=== PATIENT | male | born 1980 | race Caucasian/White ===

== ENCOUNTER 2016-07-13 00:58 | Emergency (ER) | payer MEDICAID ==
[~2016-07-13] VITALS: Ht 167.6 cm; Wt 86.2 kg
[~2016-07-13 00:58] MED LIST: ATIVAN1 MG PO; FOLATE1 MG PO; LIBRIUM25 MG PO; MULTIVITAMIN1 TA1 PO; SEROQUEL25 MG; SEROQUEL50 MG PO; TYLENOL325 M2 PO; VALIUM5 M1 PO; VITAMIN B1 NAT100 MG PO; XANAX0.25 MG PO
[2016-07-13 01:11] VITALS: BP 152/90
--- NOTE | 2016-07-13 01:39 | NUR ---
Kemi whitlock in [facility] - 07/13/16 at 0146 by PHIL Patient to bed .
--- NOTE | 2016-07-13 02:02 | NUR ---
PATIENT PRESENTS TO ED WITH ALCOHOL WITHDRAWAL SYMPTOMS . PT STATES HE HAD 3 SEIZURES TODAY WHILE AT HOME, 1 FATHER WAS PRESENT AND 2 MOM WAS PRESENT X 30 MIN FOR THE 1ST SEIZURE AND UNKNOWN TIME FOR THE 2 OTHERS . TONGUE IS NOT SWOLLEN OR RED ON ASSESSMENT AT THE MOMENT. PT STATES HE TAKE ATIVAN 2MG 3X A DAY FOR SEIZURE AND HAS BEEN OUT OF MEDICATION FOR 2 WEEKS AND SINCE THEN BEEN DRINKING ALCOHOL. PT DENIES N/V/D; SKIN IS PINK/WARM/DRY; AAOX4 WITH EVEN AND STEADY GAIT; LUNGS CLEAR BL; HR EVEN AND REGULAR; PT DENIES ANY FEVER, CP, SOB, OR COUGH AT THIS TIME; PATIENT STATES PAIN OF 0/10 AT THIS TIME; VSS; PATIENT POSITIONED FOR COMFORT; HOB ELEVATED; BEDRAILS UP X2; BED DOWN. ER MD MADE AWARE OF PT STATUS.
--- NOTE | 2016-07-13 02:02 | NUR ---
Patient to bed 05.
[2016-07-13] MEDS ORDERED: LORazepam 2 MG/ML VIAL IVP ONE (02:30)
[2016-07-13] MEDS ORDERED: NACL 0.9% 2,000 ML IV ONE (02:30)
--- NOTE | 2016-07-13 03:53 | NUR ---
IV removed, catheter intact and site benign. Applied folded 4x4 gauze and tape to stop bleeding.
[2016-07-13 03:54] VITALS: BP 132/87
--- NOTE | 2016-07-13 03:54 | NUR ---
Patient discharged with v/s stable. Written and verbal after care instructions given and explained. Patient alert, oriented and verbalized understanding of instructions. Ambulatory with steady gait. All questions addressed prior to discharge. ID band removed. Patient advised to follow up with PMD. Rx of ATIVAN 1MG given. Patient educated on indication of medication including possible reaction and side effects. Opportunity to ask questions provided and answered.PT STATES HE CALLED HIS MOM, SHE WILL COME AND PICK HIM UP
== END 2016-07-13 03:54 | disposition home or self-care (01) ==
LOC: MED 00:58
DX: F10.129 Alcohol abuse with intoxication, unspecified (principal); Y90.8 Blood alcohol level of 240 mg/100 ml or more
CPT/HCPCS: 36415; 80053; 85025; 85610; 96361; 96374; 99284; G0480; G0482; J2060; J7030

== ENCOUNTER 2017-01-26 19:54 | Inpatient (IN) | payer MEDICAID ==
[~2017-01-26] VITALS: Ht 167.6 cm; Wt 78.9 kg
[~2017-01-26 19:54] MED LIST changes: -ATIVAN1 MG PO; -FOLATE1 MG PO; -LIBRIUM25 MG PO; +LORA-476 PO; +MULT-298 PO; -MULTIVITAMIN1 TA1 PO; -SEROQUEL25 MG; -SEROQUEL50 MG PO; -TYLENOL325 M2 PO; -VALIUM5 M1 PO; -VITAMIN B1 NAT100 MG PO; -XANAX0.25 MG PO
[2017-01-26 20:05] VITALS: BP 131/80
--- NOTE | 2017-01-26 20:43 | NUR ---
TO ER BED 9
--- NOTE | 2017-01-26 20:45 | NUR ---
PATIENT IS A 36 Y/O MALE WHO PRESENTS TO THE ED C/O SEIZURES. PT STATES, "I GET THEM WHEN I STOP DRINKING ALCOHOL. PT DENIES PAIN, PT REPORTS SEIZURES X1 DAY, NO ORAL TRAUMA. PERRLA. PT REPORTS TIGHTNESS 7/10 CHEST PAIN THAT DOES NOT RADIATE. PT REPORTS DIARRHEA X1 DAY, DENIES N/V. PT AAOX4, RR EVEN/UNLABORED. PT REPOSITIONED FOR COMFORT, BED IN LOWEST POSITION. ER MD DR. JARVIS NOTIFIED. WILL CONTINUE TO MONITOR. Addendum: 01/26/17 at 2211 by MEDDCV PATIENT IS A 36 Y/O MALE WHO PRESENTS TO THE ED C/O SEIZURES. PT STATES, "I GET THEM WHEN I STOP DRINKING ALCOHOL. PT DENIES PAIN, PT REPORTS SEIZURES X1 DAY, NO ORAL TRAUMA. PERRLA. SEIZURE PADS, X2 BEDRAILS UP. PT REPORTS TIGHTNESS 7/10 CHEST PAIN THAT DOES NOT RADIATE. PT REPORTS DIARRHEA X1 DAY, DENIES N/V. PT AAOX4, RR EVEN/UNLABORED. PT REPOSITIONED FOR COMFORT, BED IN LOWEST POSITION. ER MD DR. JARVIS NOTIFIED. WILL CONTINUE TO MONITOR.
[2017-01-26] MEDS ORDERED: NACL 0.9% 1,000 ML IV ONE (21:10)
[2017-01-26] MEDS ORDERED: LORazepam 2 MG/ML VIAL IVP ONE (21:10)
[2017-01-26] MEDS ORDERED: ONDANSETRON 4 MG/2 ML VIAL IVP PRN (21:30)
[2017-01-26] MEDS ORDERED: MORPHINE SULFATE 4 MG/ML SYR IVP PRN (21:30)
[2017-01-26] MEDS ORDERED: ALBUTEROL 0.083% 2.5 MG/3 ML NEBU IH PRN (21:30)
[2017-01-26] MEDS ORDERED: HYDROcodone/APAP 5/325 MG 1 TAB TAB PO PRN (21:30)
[2017-01-26] MEDS ORDERED: ACETAMINOPHEN 325 MG TAB PO PRN (21:30)
[2017-01-26 21:34] LABS: HEMATOCRIT 32.8 % (36-52); HEMOGLOBIN 9.7 g/dL (12.0-18.0); MEAN CORPUSCULAR HEMOGLOBIN 17 pg (27-31); MEAN CORPUSCULAR HGB CONC 30 g/dL (33-37); MEAN CORPUSCULAR VOLUME 59 fL (80-94); PLATELET COUNT (AUTO) 231 K/uL (140-450); RED CELL DISTRIBUTION WIDTH 18.8 % (11.6-13.7); WHITE BLOOD COUNT (AUTO) 7.2 K/uL (4.8-10.8)
[2017-01-26] MEDS ORDERED: LORazepam 2 MG/ML VIAL IM/IVP PRN (21:35)
[2017-01-26 21:44] LABS: ANION GAP 11.6 (8-16); CARBON DIOXIDE 30.1 mmol/L (21-32); CREATININE 0.7 mg/dL (0.7-1.3); POTASSIUM 3.7 mmol/L (3.5-5.1)
[2017-01-26 21:50] LABS: ALBUMIN 3.5 g/dL (3.4-5.0); TOTAL BILIRUBIN 0.5 mg/dL (0.0-1.0)
[2017-01-26 22:00] LABS: LYMPHOCYTES % (MANUAL) 41 % (20-46)
[2017-01-26 22:01] LABS: MONOCYTES % (MANUAL) 4 % (5-12)
[2017-01-26 22:08] LABS: APPEARANCE,URINE CLEAR (CLEAR); BILIRUBIN,URINE NEGATIVE (NEGATIVE); BLOOD, URINE NEGATIVE (NEGATIVE); COLOR,URINE YELLOW (YELLOW); LEUKOCYTE ESTERASE ,URINE NEGATIVE (NEGATIVE); NITRITE, URINE NEGATIVE (NEGATIVE); PH,URINE 5.5 (5.0-9.0); UGLUCOSE NEGATIVE (NEGATIVE)
[2017-01-26 22:14] LABS: BARBITURATE, URINE NEG. ng/ml (NEG <=200); BENZODIAZEPINE, URINE NEG. ng/mL (NEG <=200); CANNABINOID, URINE NEG. ng/mL (NEG <=50); COCAINE, URINE NEG. ng/mL (NEG <=300); OPIATE, URINE NEG. ng/mL (NEG <=2000); PHENCYCLIDINE SCREEN,URINE NEG. ng/mL (NEG <=25)
--- NOTE | 2017-01-26 22:15 | NUR ---
Patient noted to have existing wounds upon arrival to ER. Photos taken of wound and placed in chart. Wound covered with dressing. Physician informed.
--- NOTE | 2017-01-26 22:20 | NUR ---
RECEIVED REPORT FROM SWATHI CHAUDHARI. PATIENT ARRIVED FROM ER VIA [facility] WITH SWATHI RN, RACHID RN, AND WYATT EMT. PATIENT IS AWAKE, ALERT, AND ORIENTED. PATIENT SELF AMBULATED FROM ER GURNEY TO ICU BED 2 WITH NO SIGNS OF SOB OR DISTRESS NOTED. GAIT STEADY. ORIENTED PATIENT TO UNIT AND PLAN OF CARE VITAL SIGNS STABLE. THERE IS A #20 IN THE RIGHT AC. SITE IS DRY, INTACT, AND ASYMPTOMATIC. EXPLAINED PLAN OF CARE TONIGHT TO INCLUDE CARDIAC MONITORING, V/S Q2H, AND MEDICATION ADMINISTRATION. PATIENT VERBALIZED UNDERSTANDING. HOB AT 30 DEGREES WITH BED IN LOW POSITION. WILL CONTINUE TO MONITOR PATIENT.
--- NOTE | 2017-01-26 22:22 | NUR ---
Patient will be admitted to care of DR. HDEZ. Admited to ICU. Will go to room ICU 2. Belongings list completed. Report to JOSH CHAUDHARI.
[2017-01-26] MEDS: DEXT 5% /NACL 0.9% 1,000 ML IV SCH (22:25)
--- NOTE | 2017-01-26 22:37 | NUR ---
PATIENT REQUESTED ICE CHIPS. PROVIDED PATIENT WITH 1 CUP OF ICE CHIPS. TOLERATED WELL. CONTINUE TO MONITOR PATIENT.
[2017-01-26] MEDS: LORazepam 2 MG/ML VIAL IM/IVP PRN (22:43)
[2017-01-26 23:00] VITALS: BP 123/82
[2017-01-27] VITALS (10 sets, daily range): BP systolic 111–148; BP diastolic 60–92
--- NOTE | 2017-01-27 00:10 | NUR ---
PATIENT SLEEPING IN BED. BREATHING EVEN AND UNLABORED. HOB AT 30 DEGREES WITH BED IN LOW POSITION. SEIZURE PRECAUTIONS IN PLACE. CONTINUE TO MONITOR PATIENT.
--- NOTE | 2017-01-27 02:14 | NUR ---
PATIENT SLEEPING IN BED. NO SIGNS OF DISTRESS OR SOB NOTED. WILL CONTINUE TO MONITOR PATIENT.
--- NOTE | 2017-01-27 06:21 | NUR ---
PATIENT SLEEPING COMFORTABLY IN BED WITH NO SIGNS OF DISTRESS OR DISCOMFORT NOTED. WILL CONTINUE TO MONITOR PATIENT.
--- NOTE | 2017-01-27 07:20 | NUR ---
RECEIVED A REPORT FROM WATSON MESSINA. PT IS ASLEEP AND UNABLE TO FOLLOW COMMANDS AT THIS TIME. ON O2 2L/MIN VIA N/C. NO S/SX OF RESPIRATORY DISTRESS AND FLACC 0 NOTED. SR ON THE MONITOR. SKIN WARM TO TOUCH. NO EDEMA. APPLIED SCD TO BLE FOR VTE PROPHYLAXIS. SAFETY PRECAUTION, BED IN LOW POSITION. CALL LIGHT WITHIN REACH. WILL CONTINUE TO MONITOR.
[2017-01-27 07:48] LABS: HEMATOCRIT 31.1 % (36-52); HEMOGLOBIN 8.9 g/dL (12.0-18.0); MEAN CORPUSCULAR HEMOGLOBIN 17 pg (27-31); MEAN CORPUSCULAR HGB CONC 29 g/dL (33-37); MEAN CORPUSCULAR VOLUME 60 fL (80-94); PLATELET COUNT (AUTO) 222 K/uL (140-450); RED BLOOD CELL COUNT(AUTO) 5.21 MIL/uL (4.20-6.10); RED CELL DISTRIBUTION WIDTH 19.5 % (11.6-13.7); WHITE BLOOD COUNT (AUTO) 4.7 K/uL (4.8-10.8)
[2017-01-27 08:08] LABS: MAGNESIUM 1.7 mg/dL (1.8-2.4); PHOSPHORUS 4.1 mg/dL (2.5-4.9)
[2017-01-27 08:11] LABS: LYMPHOCYTES % (MANUAL) 32 % (20-46); MONOCYTES % (MANUAL) 6 % (5-12)
[2017-01-27 08:24] LABS: ANION GAP 7.5 (8-16); CARBON DIOXIDE 31.2 mmol/L (21-32); CREATININE 0.6 mg/dL (0.7-1.3); POTASSIUM 3.7 mmol/L (3.5-5.1)
[2017-01-27] MEDS: chlordiazePOXIDE 25 MG CAP PO SCH ×3 (09:19→16:13)
--- NOTE | 2017-01-27 09:19 | NUR ---
IS AT BEDSIDE. PT TOLERATED MEDICATION WELL. WILL CONTINUE TO MONITOR
--- NOTE | 2017-01-27 09:49 | NUR ---
PATIENT HAS BEEN SCREENED AND CATEGORIZED HIGH NUTRITION RISK. PATIENT WILL BE SEEN WITHIN 1-2 DAYS OF ADMISSION. 01/27/17-01/28/[address]
--- NOTE | 2017-01-27 10:44 | NUR ---
TERRI NOTE PER CLAY Hicks OF [facility] PH# [phone], REVIEWS AND DISCHARGE NEEDS SHOULD ONLY BE SENT TO [facility] AND NOT TO [facility]. INITIAL REVIEW FAXED TO [facility] [phone] PH# [phone] [phone]
[2017-01-27] MEDS: DEXT 5% /NACL 0.9% 1,000 ML IV SCH ×2 (11:09→16:21)
--- NOTE | 2017-01-27 11:30 | NUR ---
PT STABLE. NO S/SX OF RESPIRATORY DISTRESS AND DENIES PAIN AT THIS TIME
[2017-01-27] MEDS ORDERED: MAGNESIUM OXIDE 400 MG TAB PO SCH (13:04)
--- NOTE | 2017-01-27 13:10 | NUR ---
PT STABLE. DENIES ANY PAIN OR DISCOMFORT AT THIS TIME. WILL CONTINUE TO MONITOR
--- NOTE | 2017-01-27 13:45 | NUR ---
01/27/17 RD INITIAL ASSESSMENT COMPLETED PLEASE REFER TO NUTRITION ASSESSMENT UNDER CARE ACTIVITY FOR ESTIMATED NUTRITIONAL NEEDS. 1. CONTINUE REGULAR DIET 2. ENCOURAGE INCREASED PO INTAKE TO TOLERANCE 3. RD TO FOLLOW-UP 2-3 DAYS, HIGH RISK [address]
[2017-01-27] MEDS: LORazepam 2 MG/ML VIAL IM/IVP PRN (14:26)
--- NOTE | 2017-01-27 14:31 | NUR ---
PT C/O ANXIETY. ADMINISTERED ATIVAN ORDERED PRN. PT TOLERATED ALL MEDS WELL.
[2017-01-27] MEDS ORDERED: INFLUENZA VIRUS VACCINE QUAD 0.5 ML SYR IMVAC SCH (15:55)
--- NOTE | 2017-01-27 16:15 | NUR ---
PT IS STABLE. IV'S DC'D WITH CANNULA INTACT. WRIST BAND REMOVED. DISCHARGE INSTRUCTION GIVEN AND SIGNED BY PT'S . ALL PERSONAL BELONGINGS TAKEN BY PT AND LEFT WITH .
== END 2017-01-27 16:15 | disposition home or self-care (01) | DRG 775 ==
LOC: MED 19:54 → MIC 21:31
PROVIDERS: ADMIT Internal Medicine Pulmonary Disease; ATTEND Internal Medicine Pulmonary Disease
DX: F10.239 Alcohol dependence with withdrawal, unspecified (principal); R56.9 Unspecified convulsions; E83.42 Hypomagnesemia; E87.1 Hypo-osmolality and hyponatremia; F41.9 Anxiety disorder, unspecified
CPT/HCPCS: 36415; 80048; 80053; 80305; 81003; 83735; 84100; 85025; 87081; 90658; 96361; 96374; 99285; G0482; J2060; J7030; J7042

== ENCOUNTER 2017-08-15 14:54 | Emergency (ER) | payer MEDICAID ==
[~2017-08-15] VITALS: Ht 162.6 cm; Wt 82.6 kg
[~2017-08-15 14:54] MED LIST changes: -MULT-298 PO
[2017-08-15 15:02] VITALS: BP 134/93
--- NOTE | 2017-08-15 15:05 | NUR ---
WHEEL CHAIR ASSISTED TO BED 10
--- NOTE | 2017-08-15 15:12 | NUR ---
37 YO M BIB PARENTS AFTER BEING FOUND ON THE FLOOR "PASSED OUT". PT REPORTS HE CONSUMED 3 BEERS TODAY, AND DRINKS 20 BEERS/DAY FOR THE PAST MONTH. PT HAS HAD SEIZURES R/T ETOH IN THE PAST PER PARENTS. DENY EPILEPSY. PT A&O X 3. GCS 14. CMS INTACT. RR EVEN AND UNLABORED AT THIS TIME. LUNG SOUNDS CLEAR BILAT. ABD SOFT, NON-TENDER. PT DID NOT RECEIVE ANY INJURIES WHEN HE "PASSED OUT". PT PUPILS ARE DILATED AND RESPONSIVE TO LIGHT, PERRLA INTACT BRISK 4MM. ER MD WIGGINS NOTIFIED. PT NEEDS MET. SAFETY PRECAUTIONS IN PLACE. WILL CONTINUE TO MONITOR.
[2017-08-15] MEDS ORDERED: NACL 0.9% 1,000 ML IV ONE (15:20)
[2017-08-15 16:00] LABS: HEMATOCRIT 30.4 % (36-52); HEMOGLOBIN 8.8 g/dL (12.0-18.0); MEAN CORPUSCULAR HEMOGLOBIN 15 pg (27-31); MEAN CORPUSCULAR HGB CONC 29 g/dL (33-37); MEAN CORPUSCULAR VOLUME 52.1 fL (80-94); PLATELET COUNT (AUTO) 205 K/uL (140-450); RED BLOOD CELL COUNT(AUTO) 5.83 MIL/uL (4.20-6.10); RED CELL DISTRIBUTION WIDTH 22.2 % (11.6-13.7); WHITE BLOOD COUNT (AUTO) 3.5 K/uL (4.8-10.8)
--- NOTE | 2017-08-15 16:00 | NUR ---
PT RESTING PEACEFULLY IN BED AT THIS TIME. WILL CONTINUE TO MONITOR.
[2017-08-15 16:03] LABS: APPEARANCE,URINE CLEAR (CLEAR); BILIRUBIN,URINE NEGATIVE (NEGATIVE); BLOOD, URINE NEGATIVE (NEGATIVE); COLOR,URINE YELLOW (YELLOW); LEUKOCYTE ESTERASE ,URINE NEGATIVE (NEGATIVE); NITRITE, URINE NEGATIVE (NEGATIVE); PH,URINE 5.5 (5.0-9.0); UGLUCOSE NEGATIVE (NEGATIVE)
[2017-08-15 16:41] LABS: LYMPHOCYTES % (MANUAL) 46 % (20-46); MONOCYTES % (MANUAL) 6 % (5-12)
[2017-08-15 16:52] LABS: ALBUMIN 3.9 g/dL (3.4-5.0); ANION GAP 18.1 (8-16); ASPARTATE AMINOTRANSFERASE 91 U/L (15-37); CARBON DIOXIDE 26.9 mmol/L (21-32); CHLORIDE 101 mmol/L (98-107); CREATININE 0.7 mg/dL (0.7-1.3); GFR ARICAN-AMERICAN 165 mL/min (>90); GLUCOSE 103 mg/dL (74-106); LIPASE 278 U/L (73-393); SODIUM SERUM 142 mmol/L (136-145); TOTAL BILIRUBIN 0.6 mg/dL (0.0-1.0); UREA NITROGEN, BLOOD 6 mg/dL (7-18)
[2017-08-15 16:57] LABS: SALICYLATE < 2.8 mg/dL (2.8-20.0)
[2017-08-15 16:59] LABS: ACETAMINOPHEN < 0.5 ug/ml (10-30)
--- NOTE | 2017-08-15 16:59 | NUR ---
CRITICAL LAB VALUE RECEIVED AT THIS TIME FROM ELVIRA. BLOOD ALCOHOL 422.
[2017-08-15 17:58] VITALS: BP 128/74
[2017-08-15 23:31] LABS: BARBITURATE, URINE NEG. ng/ml (NEG <=200); BENZODIAZEPINE, URINE NEG. ng/mL (NEG <=200); CANNABINOID, URINE NEG. ng/mL (NEG <=50); COCAINE, URINE NEG. ng/mL (NEG <=300); OPIATE, URINE NEG. ng/mL (NEG <=2000); PHENCYCLIDINE SCREEN,URINE NEG. ng/mL (NEG <=25)
== END 2017-08-15 17:58 | disposition home or self-care (01) ==
LOC: MED 14:54
DX: F10.129 Alcohol abuse with intoxication, unspecified (principal); F41.9 Anxiety disorder, unspecified; G40.909 Epilepsy, unspecified, not intractable, without status epilepticus; F17.210 Nicotine dependence, cigarettes, uncomplicated
CPT/HCPCS: 36415; 71045; 80053; 80305; 81003; 83690; 84484; 85025; 93005; 96360; 99285; G0480; G0482; J7030; Q0092

== ENCOUNTER 2019-04-15 18:55 | Emergency (ER) | payer MEDICAID ==
[~2019-04-15] VITALS: Ht 167.6 cm; Wt 99.3 kg
[2019-04-15 19:52] VITALS: BP 158/83
--- NOTE | 2019-04-15 19:59 | NUR ---
PT AMBULATED TO THE LOBBY TO A/W BED
[2019-04-15] MEDS ORDERED: KETOROLAC 30 MG/ML VIAL IM ONE (21:50)
--- NOTE | 2019-04-15 22:00 | NUR ---
PATIENT ASSESSMENT COMPLETED FOR RIB PAIN. PATIENT AT CHAIRSIDE. PATIEN SITTING UP NO DISTRESS AT THIS TIME.
--- NOTE | 2019-04-15 23:30 | NUR ---
PATIENT SITTING UP IN CHAIR. NO NEEDS STATED.
[2019-04-16] MEDS ORDERED: DICYCLOMINE HCL LIQUID 20 MG, ALUMINUM HYD/MAG/SIMETHICONE 30 ML, LIDOCAINE VISCOUS 2% ... PO ONE ×3 (00:15)
[2019-04-16] MEDS ORDERED: HYDROcodone/APAP 5/325 MG 1 TAB TAB PO ONE (00:15)
[2019-04-16] MEDS ORDERED: ALUMINUM HYD/MAG/SIMETHICONE 30 ML UDC ONE (00:26)
[2019-04-16] MEDS ORDERED: LIDOCAINE VISCOUS 2% 20 ML UDC ONE (00:26)
[2019-04-16] MEDS ORDERED: DICYCLOMINE HCL LIQUID 10 MG/5 ML UDC ONE (00:26)
[2019-04-16 00:46] VITALS: BP 148/80
--- NOTE | 2019-04-16 00:47 | NUR ---
Patient discharged with v/s stable. Written and verbal after care instructions given and explained. Patient alert, oriented and verbalized understanding of instructions. Ambulatory with steady gait. All questions addressed prior to discharge. ID band removed. Patient advised to follow up with PMD. Rx of PRIOLSEC, PROMETHAZINE given. Patient educated on indication of medication including possible reaction and side effects. Opportunity to ask questions provided and answered.
== END 2019-04-16 00:47 | disposition home or self-care (01) ==
LOC: MED 18:55
DX: R10.13 Epigastric pain (principal); K44.9 Diaphragmatic hernia without obstruction or gangrene; R05 Cough; F17.210 Nicotine dependence, cigarettes, uncomplicated; Z79.899 Other long term (current) drug therapy
CPT/HCPCS: 71111; 74150; 96372; 99284; J1885

== ENCOUNTER 2019-08-04 03:19 | Emergency (ER) | payer MEDICAID ==
[~2019-08-04] VITALS: Ht 162.6 cm; Wt 81.6 kg
[2019-08-04 03:20] VITALS: BP 123/68
--- NOTE | 2019-08-04 03:23 | NUR ---
PT TAKEN TO BED 4
--- NOTE | 2019-08-04 03:26 | NUR ---
Dr. Cole examing patient.
--- NOTE | 2019-08-04 03:30 | NUR ---
39 Y/O MALE PRESENTS TO ER WITH ETOH INTOXICATION. PT STATES HIS MOTHER DROPPED HIM OFF. PT FELL ON FLOOR IN WAITING AREA, AND WAS IMMEDIATELY BROUGHT BACK TO BED 4. PT WAS PLACED IN BED, AND PLACED ON SEIZURE PRECAUTIONS. PT STATED HE JUST WANTED A BANANA BAG, AND SEEING 1 YEAR OLD SON "DEVANG" PT'S DAD AND MOM STATED HE'S BEEN DRINKING FOR 3 MONTHS STRAIGHT. PT DENIES SI/HI, DENIES PAIN COUGH, SOB, NAUSEA, VOMITING, DIARRHEA. PT STATES HAS 7/10 PAIN WITH "CHEST COMPRESSIONS" PT'S VSS. R/R EQUAL, AND UNLABORED. PT CONTINUES TO REQUEST ATIVAN, ERMD NOTIFIED. RIGHT FOREARM 22G IV PLACED WITH NS BOLUS. SIDERAIL X2, WILL CONTINUE TO MONITOR. NKDA DENIES PMHX
--- NOTE | 2019-08-04 03:31 | NUR ---
CONTACT NUMBER FOR RIDE IS PT'S DAD, MYCHAL KELY.
[2019-08-04] MEDS ORDERED: NACL 0.9% 1,000 ML IV ONE (03:35)
[2019-08-04] MEDS ORDERED: LORazepam 1 MG TAB PO ONE (04:10)
[2019-08-04 04:40] VITALS: BP 123/68
--- NOTE | 2019-08-04 04:40 | NUR ---
Patient discharged with v/s stable. Written and verbal after care instructions given and explained. Patient verbalized understanding. Ambulatory with steady gait. All questions addressed prior to discharge. Advised to follow up with PMD.
== END 2019-08-04 04:40 | disposition home or self-care (01) ==
LOC: MED 03:19
DX: F10.10 Alcohol abuse, uncomplicated (principal); F12.90 Cannabis use, unspecified, uncomplicated; F14.90 Cocaine use, unspecified, uncomplicated; Z79.899 Other long term (current) drug therapy
CPT/HCPCS: 99283; J7030; 99282

== ENCOUNTER 2021-06-13 01:33 | Inpatient (IN) | payer MEDICAID, SELFPAY ==
[~2021-06-13] VITALS: Ht 165.1 cm; Wt 85.7 kg
[2021-06-13 01:34] VITALS: BP 141/94
--- NOTE | 2021-06-13 01:37 | NUR ---
PT TAKEN TO BED 2
--- NOTE | 2021-06-13 01:40 | NUR ---
41 Y/O MALE BIB PARENTS, C/O ETOH/ ALCOHOL WITHDRAWAL X1 DAY. PATIENT PRESENTS TO ED WITH WEAKNESS. PT STATES HE HAS BEEN TRYING TO QUIT ALCOHOL, BONZOS, AND COCAINE AND HAS BEEN SOBER FOR 2 DAYS; HE EXPRESSED A DESIRE TO QUIT HIS DEPENDENCY; PT CLAIMS HE HAS BEEN SEIZING FROM WITHDRAWALS SINCE THIS MORNING AND HIS PARENTS HAVE BEEN GIVING HIM ALCOHOL TO STOP THE SEIZING. PT STATES HE JUST KEEPS WAKING UP IN DIFFERENT PARTS OF THE HOUSE PRESSUMABLY AFTER SEIZING. DENIES N/V/D; SKIN IS PINK/WARM/DRY; AAOX4 WITH A WEAK GAIT; LUNGS CLEAR BL; HR EVEN AND REGULAR; PT DENIES ANY FEVER, CP, SOB, OR COUGH AT THIS TIME; PATIENT STATES PAIN OF 0/10 AT THIS TIME; VSS; PATIENT POSITIONED FOR COMFORT; HOB ELEVATED; BEDRAILS UP X2; BED DOWN. ER MD MADE AWARE OF PT STATUS. PT STATES HIS NORMAL CONSUMPTION OF ALCOHOL IS 20 BEERS/DAY. HX: "DIFFICULTY URINATING" NKDA MED: TAMSULOSIN
--- NOTE | 2021-06-13 01:42 | NUR ---
Dr. Bateman examining patient.
[2021-06-13] MEDS ORDERED: LORazepam 2 MG/ML VIAL IVP ONE (01:55)
[2021-06-13] MEDS ORDERED: NACL 0.9% 2,000 ML IV ONE (01:55)
--- NOTE | 2021-06-13 01:58 | NUR ---
BLOOD, URINE, AND COVID/MARILEE COLLECTED AND GIVEN TO LATHE SET UP PERSONGRACE SYED.
[2021-06-13 02:12] LABS: BASOPHILS % (AUTO) 0.4 % (0.0-2.0); EOSINOPHILS # (AUTO) 0.1 K/uL (0-0.4); EOSINOPHILS % (AUTO) 2.3 % (0.0-4.0); HEMATOCRIT 46.3 % (36-52); HEMOGLOBIN 14.6 g/dL (12.0-18.0); LYMPHOCYTES # (AUTO) 1.8 K/uL (2.0-11.5); LYMPHOCYTES % (AUTO) 35.2 % (20.5-51.1); MEAN CORPUSCULAR HEMOGLOBIN 22 pg (27-31); MEAN CORPUSCULAR HGB CONC 32 g/dL (33-37); MEAN CORPUSCULAR VOLUME 70.5 fL (80-94); MONOCYTES # (AUTO) 0.4 K/uL (0.8-1.0); MONOCYTES % (AUTO) 7.5 % (1.7-9.3); NEUTROPHILS # (AUTO) 2.8 K/uL (1.8-7.7); NEUTROPHILS % (AUTO) 54.6 % (42.2-75.2); PLATELET COUNT (AUTO) 190 K/uL (140-450); RED BLOOD CELL COUNT(AUTO) 6.58 MIL/uL (4.20-6.10); RED CELL DISTRIBUTION WIDTH 27.6 % (11.6-13.7); WHITE BLOOD COUNT (AUTO) 5.2 K/uL (4.8-10.8)
[2021-06-13 02:20] LABS: BARBITURATE, URINE NEGATIVE ng/ml (NEG <=200); BENZODIAZEPINE, URINE POSITIVE ng/mL (NEG <=200)
[2021-06-13 02:21] LABS: CANNABINOID, URINE NEGATIVE ng/mL (NEG <=50); COCAINE, URINE POSITIVE ng/mL (NEG <=300); OPIATE, URINE NEGATIVE ng/mL (NEG <=2000); PHENCYCLIDINE SCREEN,URINE NEGATIVE ng/mL (NEG <=25)
[2021-06-13 02:32] LABS: ALBUMIN 3.5 g/dL (3.4-5.0); ANION GAP 13.7 (8-16); CARBON DIOXIDE 26.4 mmol/L (21-32); CREATININE 0.6 mg/dL (0.6-1.3); POTASSIUM 3.1 mmol/L (3.5-5.1); TOTAL BILIRUBIN 0.8 mg/dL (0.0-1.0)
[2021-06-13 02:53] LABS: ACETAMINOPHEN < 0.5 ug/ml (10-30); SALICYLATE < 2.8 mg/dL (2.8-20.0)
--- NOTE | 2021-06-13 04:12 | NUR ---
Patient will be admitted to care of DR MATUTE. Admited to TELE. Will go to room 124B. Belongings list completed. Report to CATRINA CHAUDHARI.
[2021-06-13 04:28] VITALS: BP 97/67
[2021-06-13] MEDS ORDERED: TAMS0.4C96 PO (04:29)
--- NOTE | 2021-06-13 07:10 | NUR ---
RECEIVED PATIENT FROM JUNIOR JAVA DEVELOPER NURSE FOR CONTINUITY OF CARE. PATIENT IS SLEEPING, CHEST RISE AND FALL, AROUSABLE TO VOICE, A/O X3. RESPIRATORY EVEN AND UNLABORED, ON ROOM AIR. NO SIGN OF DISTRESS NOTED. SKIN WARM, DRY, NON DIAPHORETIC. IV ON RIGHT AC 20G, INTACT AND PATENT, SALINE LOCK. DENIES ANY PAIN OR DISCOMFORT. PLAN OF CARE DISCUSSED, PATIENT VERBALIZED UNDERSTANDING. PRECAUTION IN PLACE. CALL LIGHT WITHIN REACH. WILL CONTINUE TO MONITOR.
[2021-06-13 08:00] VITALS: BP 105/59
[2021-06-13] MEDS ORDERED: HYDROcodone/APAP 7.5/325 MG 1 TAB PO PRN (08:20)
[2021-06-13] MEDS ORDERED: DOCUSATE SODIUM 100 MG GELCAP PO PRN (08:20)
[2021-06-13] MEDS ORDERED: ONDANSETRON 4 MG/2 ML VIAL IM/IVP PRN (08:20)
[2021-06-13] MEDS ORDERED: POTASSIUM CHLORIDE 10 MEQ TABER PO PRN (08:20)
[2021-06-13] MEDS ORDERED: ZOLPIDEM 5 MG TAB PO PRN (08:20)
[2021-06-13] MEDS ORDERED: ACETAMINOPHEN 325 MG TAB PO PRN (08:20)
[2021-06-13] MEDS ORDERED: guaiFENesin DM 200/20 MG-10 ML 10 ML UDC PO PRN (08:20)
[2021-06-13] MEDS: PANTOPRAZOLE 40 MG TABEC PO SCH (09:28)
[2021-06-13] MEDS: NACL 0.9% 1,000 ML IV SCH ×2 (09:35→16:20)
--- NOTE | 2021-06-13 09:35 | NUR ---
PATIENT IS AWAKE, EATING BREAKFAST. SCHEDULE MEDICATIONS GIVEN WITH EDUCATION, PATIENT VERBALIZED UNDERSTANDING. PATIENT TOLERATED WELL. NO SIGN OF DISTRESS NOTED. PRECAUTION IN PLACE. CALL LIGHT WITHIN REACH. WILL CONTINUE TO MONITOR.
[2021-06-13 10:22] LABS: CHOL/HDL RATIO 2.6 (1-4.5); FREE T4 (FREE THYROXINE) 0.6 ng/dL (0.76-1.46); MAGNESIUM 2.1 mg/dL (1.8-2.4); PHOSPHORUS 4.4 mg/dL (2.5-4.9); THYROID STIMULATING HORMONE 1.13 uIU/mL (0.34-3.74)
[2021-06-13] MEDS: MULTIVITAMIN-12 10 ML, THIAMINE 100 MG, FOLIC ACID 1 MG, MAGNESIUM SULFATE 50% 2,000 MG... IV SCH ×5 (10:24)
[2021-06-13 11:01] LABS: PROTHROMBIN TIME 11.5 secs (10.8-13.4)
--- NOTE | 2021-06-13 11:20 | NUR ---
PATIENT IS SLEEPING, CHEST RISE AND FALL NOTED, AROUSABLE TO VOICE. NO SIGN OF DISTRESS NOTED. PRECAUTION IN PLACE. CALL LIGHT WITHIN REACH. WILL CONTINUE TO MONITOR.
--- NOTE | 2021-06-13 11:30 | NUR ---
DC PLANNIN YRS OLD MALE PATIENT WAS ADMITTED FROM HOME WITH A DX OF ALCOHOL WITHDRAWAL. PATIENT HAS A HX OF BPH, SEIZURE, ALCOHOL AND COCAINE ABUSE. RAPID COVID TEST NEGATIVE. ADMINISTERED IVF AND BANANA BAG . MINE WEDGE SAWYER TO EVALUATE FOR ALCOHOL AND DRUG ABUSE. DC PLAN TO GO HOME WHEN STABLE. CM TO FOLLOW
[2021-06-13 11:48] LABS: APPEARANCE,URINE CLEAR (CLEAR); BILIRUBIN,URINE NEGATIVE (NEGATIVE); BLOOD, URINE NEGATIVE (NEGATIVE); COLOR,URINE YELLOW (YELLOW); LEUKOCYTE ESTERASE ,URINE NEGATIVE (NEGATIVE); NITRITE, URINE NEGATIVE (NEGATIVE); UGLUCOSE NEGATIVE (NEGATIVE)
[2021-06-13 12:00] VITALS: BP 107/62
--- NOTE | 2021-06-13 12:30 | NUR ---
PATIENT AMBULATE TO BATHROOM INDEPENDENTLY WITH STEADY GAIT. NO SIGN OF DISTRESS NOTED. PRECAUTION IN PLACE, CALL LIGHT WITHIN REACH. WILL CONTINUE TO MONITOR.
--- NOTE | 2021-06-13 14:20 | NUR ---
PATIENT IS SLEEPING, CHEST RISE AND FALL, NO SIGN OF DISTRESS NOTED. PRECAUTION IN PLACE. CALL LIGHT WITHIN REACH. WILL CONTINUE TO MONITOR.
[2021-06-13 16:00] VITALS: BP 115/63
--- NOTE | 2021-06-13 16:20 | NUR ---
PATIENT IS AWAKE, RESTING IN BED, NO SIGN OF DISTRESS NOTED. PRECAUTION IN PLACE. CALL LIGHT WITHIN REACH. WILL CONTINUE TO MONITOR.
--- NOTE | 2021-06-13 16:25 | NUR ---
PATIENT HAS BEEN SCREENED AND CATEGORIZED MODERATE NUTRITION RISK. PATIENT WILL BE SEEN WITHIN 3-5 DAYS OF ADMISSION. [address]
--- NOTE | 2021-06-13 18:35 | NUR ---
PATIENT IS SLEEPING, CHEST RISE AND FALL, AROUSABLE TO VOICE. NO SIGN OF DISTRESS NOTED. PRECAUTION IN PLACE. CALL LIGHT WITHIN REACH. WILL CONTINUE TO MONITOR.
--- NOTE | 2021-06-13 19:29 | NUR ---
ENDORSED PATIENT TO PROCUREMENT ACCOUNTANT FOR CONTINUITY OF CARE. PATIENT IS STABLE.
[2021-06-14] MEDS: NACL 0.9% 1,000 ML IV SCH ×2 (00:20→08:20)
[2021-06-14 05:25] LABS: ANION GAP 10.2 (8-16); CARBON DIOXIDE 29.4 mmol/L (21-32); CREATININE 0.7 mg/dL (0.6-1.3); POTASSIUM 3.6 mmol/L (3.5-5.1)
[2021-06-14 05:52] LABS: BASOPHILS % (AUTO) 0.2 % (0.0-2.0); EOSINOPHILS # (AUTO) 0.2 K/uL (0-0.4); EOSINOPHILS % (AUTO) 3.7 % (0.0-4.0); HEMATOCRIT 43.3 % (36-52); HEMOGLOBIN 13.8 g/dL (12.0-18.0); LYMPHOCYTES % (AUTO) 33.3 % (20.5-51.1); MEAN CORPUSCULAR HEMOGLOBIN 23 pg (27-31); MEAN CORPUSCULAR HGB CONC 32 g/dL (33-37); MEAN CORPUSCULAR VOLUME 70.7 fL (80-94); MONOCYTES # (AUTO) 0.5 K/uL (0.8-1.0); MONOCYTES % (AUTO) 7.6 % (1.7-9.3); NEUTROPHILS # (AUTO) 3.3 K/uL (1.8-7.7); NEUTROPHILS % (AUTO) 55.2 % (42.2-75.2); PLATELET COUNT (AUTO) 186 K/uL (140-450); RED BLOOD CELL COUNT(AUTO) 6.12 MIL/uL (4.20-6.10); RED CELL DISTRIBUTION WIDTH 27.6 % (11.6-13.7)
--- NOTE | 2021-06-14 07:40 | NUR ---
RECEIVED REPORT FROM LOADING UNIT OPERATOR NURSE FOR CONTINUITY OF CARE. PT ASLEEP IN BED. BREATHING SYMMETRICAL. FLACC 0. CALL LIGHT WITHIN REACH. ALL SAFETY MEASURES IN PLACE.
[2021-06-14 08:00] VITALS: BP 118/88
[2021-06-14] MEDS: PANTOPRAZOLE 40 MG TABEC PO SCH (09:13)
[2021-06-14] MEDS: MULTIVITAMIN-12 10 ML, THIAMINE 100 MG, FOLIC ACID 1 MG, MAGNESIUM SULFATE 50% 2,000 MG... IV SCH ×5 (09:31)
[2021-06-14 10:06] LABS: T4 (THYROXINE) 5.2 ug/dL (4.5-12.0)
[2021-06-14 10:07] VITALS: BP 118/88
--- NOTE | 2021-06-14 10:30 | NUR ---
PT HAS ORDER FOR DISCHARGE IN PLACE. PT STATED TO CALL FATHER TO PICK HIM UP. CALLED MYCHAL (FATHER) TWICE [phone] DIDN'T ANSWER, LEFT MESSAGE. WILL TRY AGAIN
--- NOTE | 2021-06-14 11:03 | NUR ---
TRIED CALLING AGAIN MYCHAL (FATHER) STILL NO ANSWER, LEFT MESSAGE
[2021-06-14 12:00] VITALS: BP 117/73
--- NOTE | 2021-06-14 12:00 | NUR ---
PT GAVE A ANOTHER NUMBER TO CALL MYCHAL [phone], CALLED AND SPOKE WITH MYCHAL (FATHER) MADE AWARE THAT PT IS FOR DISCHARGE AND PER PT REQUEST IF HE CAN PICK HIM UP. MYCHAL TO PRODUCER ASSISTANT PT IN 1-2HRS. PT AWARE.
--- NOTE | 2021-06-14 13:18 | NUR ---
PT DISCHARGED TO HOME WITH BELONGINGS AND PAPERWORKS, PICKED UP BY FATHER MYCHAL. PT IN STABLE CONDITION.
== END 2021-06-14 13:25 | disposition home or self-care (01) | DRG 775 ==
LOC: MED 01:33 → MTU 03:47
PROVIDERS: ADMIT Family Medicine; ATTEND Family Medicine
DX: F10.229 Alcohol dependence with intoxication, unspecified (principal); G92.9 Unspecified toxic encephalopathy; F10.239 Alcohol dependence with withdrawal, unspecified; E87.6 Hypokalemia; E86.0 Dehydration; F17.210 Nicotine dependence, cigarettes, uncomplicated; F41.9 Anxiety disorder, unspecified; G40.909 Epilepsy, unspecified, not intractable, without status epilepticus; N40.0 Benign prostatic hyperplasia without lower urinary tract symptoms; R74.01 Elevation of levels of liver transaminase levels; Z20.822 Contact with and (suspected) exposure to COVID-19; Z79.899 Other long term (current) drug therapy; Z98.52 Vasectomy status
CPT/HCPCS: 36415; 71045; 80048; 80053; 80305; 81003; 82150; 83036; 83690; 83735; 83880; 84100; 84436; 84439; 84443; 84479; 84484; 85025; 85610; 85730; 87081; 93005; 96361; 96374; 99285; A9153; G0480; G0482; J2060; J2405; J3411; J3475; J3490; J7030; Q0092

== ENCOUNTER 2021-08-12 02:54 | Emergency (ER) | payer MEDICAID ==
[~2021-08-12] VITALS: Ht 165.1 cm; Wt 89.8 kg
[~2021-08-12 02:54] MED LIST changes: -LORA-476 PO; +TAMS0.4C96 PO
[2021-08-12 02:58] VITALS: BP 110/83
[2021-08-12] MEDS ORDERED: MULTIVITAMIN 1 TAB PO SCH (04:15)
[2021-08-12] MEDS ORDERED: THIAMINE 200 MG/2 ML VIAL IM ONE (04:15)
[2021-08-12] MEDS ORDERED: LORazepam 1 MG TAB PO ONE (04:15)
[2021-08-12] MEDS ORDERED: FOLIC ACID 1 MG TAB PO ONE (04:15)
[2021-08-12 04:41] LABS: BASOPHILS % (AUTO) 0.7 % (0.0-2.0); EOSINOPHILS # (AUTO) 0.2 K/uL (0-0.4); EOSINOPHILS % (AUTO) 2.7 % (0.0-4.0); HEMATOCRIT 47.3 % (36-52); HEMOGLOBIN 15.1 g/dL (12.0-18.0); LYMPHOCYTES # (AUTO) 2.9 K/uL (2.0-11.5); LYMPHOCYTES % (AUTO) 39.7 % (20.5-51.1); MEAN CORPUSCULAR HEMOGLOBIN 23 pg (27-31); MEAN CORPUSCULAR HGB CONC 32 g/dL (33-37); MEAN CORPUSCULAR VOLUME 71.8 fL (80-94); MONOCYTES # (AUTO) 0.5 K/uL (0.8-1.0); MONOCYTES % (AUTO) 7.4 % (1.7-9.3); NEUTROPHILS # (AUTO) 3.7 K/uL (1.8-7.7); NEUTROPHILS % (AUTO) 49.5 % (42.2-75.2); PLATELET COUNT (AUTO) 219 K/uL (140-450); RED BLOOD CELL COUNT(AUTO) 6.59 MIL/uL (4.20-6.10); RED CELL DISTRIBUTION WIDTH 21.1 % (11.6-13.7); WHITE BLOOD COUNT (AUTO) 7.4 K/uL (4.8-10.8)
--- NOTE | 2021-08-12 04:43 | NUR ---
PT TAKEN TO ER BED 05
[2021-08-12 04:55] LABS: ALBUMIN 3.8 g/dL (3.4-5.0); ANION GAP 14.9 (8-16); CARBON DIOXIDE 25.8 mmol/L (21-32); CREATININE 0.6 mg/dL (0.6-1.3); MAGNESIUM 2.3 mg/dL (1.8-2.4); PHOSPHORUS 4.6 mg/dL (2.5-4.9); POTASSIUM 3.7 mmol/L (3.5-5.1); TOTAL BILIRUBIN 0.5 mg/dL (0.0-1.0)
--- NOTE | 2021-08-12 04:59 | NUR ---
41 Y/O M BIBS C/O SEIZURE 3 HOURS AGO. PT STATES, "I'M DETOXING" "I HAD A SEIZURE ABOUT 30 MINUTES AGO" "MY PARENTS GAVE ME BEER WHEN I STARTED HAVING A SEIZURE" "I BINGE DRINK AND I'VE BEEN DRINKING FOR 3 MONTHS. I'M ALSO DETOXING FROM BENZOS AND COCAINE PMH: SEIZURE MEDS: RANDAL HAJI
[2021-08-12 05:41] VITALS: BP 122/78
--- NOTE | 2021-08-12 05:59 | NUR ---
Patient discharged with v/s stable BY ERMD. Written and verbal after care instructions given and explained. Patient verbalized understanding. Ambulatory with steady gait. All questions addressed prior to discharge. Advised to follow up with PMD.
[2021-08-12 06:04] LABS: BARBITURATE, URINE NEGATIVE ng/ml (NEG <=200); BENZODIAZEPINE, URINE POSITIVE ng/mL (NEG <=200); CANNABINOID, URINE NEGATIVE ng/mL (NEG <=50); COCAINE, URINE POSITIVE ng/mL (NEG <=300); OPIATE, URINE NEGATIVE ng/mL (NEG <=2000); PHENCYCLIDINE SCREEN,URINE NEGATIVE ng/mL (NEG <=25)
== END 2021-08-12 05:59 | disposition home or self-care (01) ==
LOC: MED 02:54
DX: F10.10 Alcohol abuse, uncomplicated (principal); F14.90 Cocaine use, unspecified, uncomplicated; F13.20 Sedative, hypnotic or anxiolytic dependence, uncomplicated; G40.909 Epilepsy, unspecified, not intractable, without status epilepticus; F17.200 Nicotine dependence, unspecified, uncomplicated; Z79.899 Other long term (current) drug therapy
CPT/HCPCS: 36415; 80053; 80305; 83690; 83735; 84100; 85025; 96372; 99284; G0482; J3411